=== PATIENT | male | born 1980 | race Hispanic/Latino ===

== ENCOUNTER 2019-01-07 11:39 | Emergency (ER) | payer OTHER ==
--- NOTE | 2019-01-07 12:59 | RAD ---
THREE VIEWS RIGHT FOOT: Date: 01-07-19 History: Injury to right foot after steel plate weighting 100 lbs. fell onto right foot one hour prio r to arrival. Pain to the top of the foot and tingling in toes. FINDINGS: The lisfranc joint is normally aligned. No fracture or dislocation is seen involving the right foot. There is mild subcutaneous soft tissue swelling seen at the dorsal aspect of the foot at the level of the metatarsals. IMPRESSION: Subcutaneous soft tissue swelling without evidence of a fracture. POS: [facility]
== END 2019-01-07 12:30 | disposition home or self-care (01) ==
LOC: NAV ERS 11:39
DX: S90.31XA Contusion of right foot, initial encounter (principal); F17.210 Nicotine dependence, cigarettes, uncomplicated; W20.8XXA Other cause of strike by thrown, projected or falling object, initial encounter
CPT/HCPCS: 36415; 99001